=== PATIENT | female | born 1990 | race Caucasian/White ===

== ENCOUNTER 2017-06-17 07:20 | Emergency (ER) | payer OTHER ==
[~2017-06-17] VITALS: Ht 162.6 cm; Wt 70.5 kg
[2017-06-17] MEDS ORDERED: IOHEXOL 350 MG/ML 10 ML VIAL (for RAD DIAG) IVCONTRAST ONE (07:21)
[2017-06-17 07:25] VITALS: BP 119/67; PULSE 90; RESP 18; TEMP 98.6; O2SAT 99
--- NOTE | 2017-06-17 07:46 | PD ---
HPI Chief Complaint: URI Time Seen by Provider: 07:45 Travel History International Travel<30 days: No Contact w/Intl Traveler<30days: No Traveled to known affect area: No History of Present Illness HPI 27-year-old female came to the emergency room with history of fever, cough, vomiting, headache, neck pain and lower back pain on starting yesterday. The symptoms have been getting worse and hence today she decided to come to the emergency room. Patient says that she has slight chance of being . No history of diarrhea. She otherwise happens to be a normal person. Her daughter is here with her to be seen as well for 10 day period of fever and cough. Patient has had her flu shot. Vital signs are stable. She took fever medications last night but none this morning. She has had 3 strep throats this year already. She also had bilateral ear infection and finished a course of Augmentin last week ago. PFSH Past Medical History Narrative Medical List of her past medical, surgical, social and family history is reviewed from the nursing note. Social History Tobacco Use: Yes Allergies-Medications (Allergen,Severity, Reaction): Coded Allergies: No Known Allergies (Unverified , 06/17/17) Comments No known drug allergies. Reported Meds & Prescriptions Reported Meds & Active Scripts Active Phenergan Supp (Promethazine HCl) 12.5 Mg Supp 12.5 Mg RECTAL Q6H PRN Ibuprofen 600 Mg Tab 600 Mg PO Q6H PRN Zithromax Z-Mukesh (Azithromycin) 250 Mg Dspk 250 Mg PO DIRECTED 500 MG (2 tabs) day 1, then 1 tab days 2-5. Reported Xanax (Alprazolam) 1 Mg Tab 0.5 Mg PO BID PRN Rizatriptan (Rizatriptan Benzoate) 5 Mg Tab 5 Mg PO Q2HR PRN Singulair (Montelukast Sodium) 10 Mg Tab 10 Mg PO HS Narrative Medication Awaiting for the nurse to the med reconciliation. Review of Systems Except as stated in HPI: all other systems reviewed are Neg General / Constitutional: Positive: Fever HENT: Positive: Sore Throat, Congestion, Earache Respiratory: Positive: Cough Physical Exam Narrative GENERAL: Awake, alert, moderate distress SKIN: Focused skin assessment warm/dry. HEAD: Atraumatic. Normocephalic. EYES: Pupils equal and round. No scleral icterus. No injection or drainage. ENT: No nasal bleeding or discharge. Mucous membranes pink and moist. Erythema of the pharynx and tonsils, no exudates. Bilateral ear canal is red and the eardrum is dull with some fluid behind the eardrum. Right ear canal has significant amount of watery stuff coming out. NECK: Trachea midline. No JVD. CARDIOVASCULAR: Regular rate and rhythm. No murmur appreciated. RESPIRATORY: No accessory muscle use. Clear to auscultation. Breath sounds equal bilaterally. GASTROINTESTINAL: Abdomen soft, non-tender, nondistended. Hepatic and splenic margins not palpable. MUSCULOSKELETAL: No obvious deformities. No clubbing. No cyanosis. No edema. NEUROLOGICAL: Awake and alert. No obvious cranial nerve deficits. Motor grossly within normal limits. Normal speech. PSYCHIATRIC: Appropriate mood and affect; insight and judgment normal. Data Data Last Documented VS Orders Orders Complete Blood Count With Diff (06/17/17 07:53) Basic Metabolic Panel (Bmp) (06/17/17 07:53) Ed Urine Pregnancytest Poc (06/17/17 07:53) Urinalysis - C+S If Indicated (06/17/17 07:53) Influenzae A/B Antigen (06/17/17 07:53) Group A Rapid Strep Screen (06/17/17 07:53) Ondansetron Inj (Zofran Inj) (06/17/17 08:00) Strep Culture (Group A) (06/17/17 08:20) Ketorolac Inj (Toradol Inj) (06/17/17 09:30) Ct Brain W/O Iv Contrast(Rout) (06/17/17 ) Ct Soft Tiss Neck W Iv Cont (06/17/17 ) Blood Culture (06/17/17 09:48) Ceftriaxone Inj (Rocephin Inj) (06/17/17 10:00) Iohexol 350 Inj (Omnipaque 350 Inj) (06/17/17 07:21) Ed Discharge Order (06/17/17 11:03) Labs Laboratory Tests Test 06/17/17 08:29 06/17/17 08:40 Urine Color YELLOW Urine Turbidity HAZY Urine pH 7.0 Urine Specific [place] 1.020 Urine Protein TRACE mg/dL Urine Glucose (UA) NEG mg/dL Urine Ketones NEG mg/dL Urine Occult Blood MOD Urine Nitrite NEG Urine Bilirubin NEG Urine Urobilinogen LESS THAN 2.0 MG/DL Urine Leukocyte Esterase NEG Urine RBC 31 /hpf Urine WBC 1 /hpf Urine Squamous Epithelial Cells 6 /hpf Urine Amorphous Sediment MOD Urine Bacteria RARE /hpf Urine Mucus FEW /lpf Urine Yeast (Budding) OCC Microscopic Urinalysis Comment CULT NOT INDICATED White Blood Count 14.7 TH/MM3 Red Blood Count 3.95 MIL/MM3 Hemoglobin 12.0 GM/DL Hematocrit 35.3 % Mean Corpuscular Volume 89.4 FL Mean Corpuscular Hemoglobin 30.5 PG Mean Corpuscular Hemoglobin Concent 34.1 % Red Cell Distribution Width 12.8 % Platelet Count 223 TH/MM3 Mean Platelet Volume 8.8 FL Neutrophils (%) (Auto) 81.4 % Lymphocytes (%) (Auto) 10.2 % Monocytes (%) (Auto) 7.8 % Eosinophils (%) (Auto) 0.4 % Basophils (%) (Auto) 0.2 % Neutrophils # (Auto) 12.0 TH/MM3 Lymphocytes # (Auto) 1.5 TH/MM3 Monocytes # (Auto) 1.1 TH/MM3 Eosinophils # (Auto) 0.1 TH/MM3 Basophils # (Auto) 0.0 TH/MM3 CBC Comment DIFF FINAL Differential Comment Blood Urea Nitrogen 8 MG/DL Creatinine 0.47 MG/DL Random Glucose 100 MG/DL Calcium Level 8.3 MG/DL Sodium Level 138 MEQ/L Potassium Level 3.8 MEQ/L Chloride Level 107 MEQ/L Carbon Dioxide Level 24.9 MEQ/L Anion Gap 6 MEQ/L Estimat Glomerular Filtration Rate 158 ML/MIN [facility] Medical Decision Making Medical Screen Exam Complete: Yes Emergency Medical Condition: Yes Medical Record Reviewed: Yes Differential Diagnosis Viral illness, influenza, UTI, pneumonia,, strep throat Narrative Course 8:20 AM awaiting for the test results to come back. Meanwhile patient is receiving IV 1 L IV fluid bolus with Zofran. 11:[address] scan of her head and soft tissue of the neck is negative. Patient has a leukocytosis. Rest of the blood test results are within normal limit. I' ll discharge her home with antibiotic prescription. She was given 1 dose of Rocephin. Procedures EKG Prior to Arrival: No Diagnosis Primary Impression: Otitis media Qualified Codes: H66.90 - Otitis media, unspecified, unspecified ear Additional Impressions: Viral illness Pharyngitis Qualified Codes: J02.9 - Acute pharyngitis, unspecified Referrals: Primary Care Physician Additional Instructions: Take the medication as per the prescription direction. Return to the ER if the condition worsens or any other new concerns. Take Motrin/ibuprofen/Advil for pain or fever. Med/Other Pt SpecificInfo: Prescription(s) given Scripts Promethazine Supp (Phenergan Supp) 12.5 Mg Supp 12.5 MG RECTAL Q6H Y for NAUSEA OR VOMITING, #10 SUPP 0 Refills Prov: Nirmal Crane MD 06/17/17 Ibuprofen (Ibuprofen) 600 Mg Tab 600 MG PO Q6H Y for Pain/Inflammation, #40 TAB 0 Refills Prov: Nirmal Crane MD 06/17/17 Azithromycin (Zithromax Z-Mukesh) 250 Mg Dspk 250 MG PO DIRECTED for Infection, #1 DSPK 0 Refills 500 MG (2 tabs) day 1, then 1 tab days 2-5. Prov: Nirmal Crane MD 06/17/17 Disposition: 01 DISCHARGE HOME Condition: Stable Nirmal Crane MD Jun 17, 2017 07:46
[2017-06-17] MEDS ORDERED: ONDANSETRON HCL 4 MG/2 ML VIAL IV PUSH ONE (08:00)
[2017-06-17] MEDS ORDERED: XANA1TAB2 PO (08:27)
[2017-06-17] MEDS ORDERED: RIZA5TAB PO (08:27)
[2017-06-17] MEDS ORDERED: MONT10TA2 PO (08:27)
[2017-06-17 09:00] LABS: BASOPHIL % 0.2 % (0.0-2.0); EOSINOPHIL # 0.1 TH/MM3 (0-0.4); EOSINOPHIL % 0.4 % (0.0-4.0); HEMATOCRIT 35.3 % (35.0-46.0); HEMO FLAGS DIFF FINAL; LYMPH % 10.2 % (9.0-44.0); LYMPHOCYTE # 1.5 TH/MM3 (1.0-4.8); MEAN CELL VOLUME 89.4 FL (80.0-100.0); MEAN CORPUSCULAR HEMOGLOBIN 30.5 PG (27.0-34.0); MEAN CORPUSCULAR HGB CONC 34.1 % (32.0-36.0); MONO % 7.8 % (0.0-8.0); NEUT % 81.4 % (16.0-70.0); PLATELET COUNT 223 TH/MM3 (150-450); RED BLOOD COUNT 3.95 MIL/MM3 (4.00-5.30); RED CELL DISTRIBUTION WIDTH 12.8 % (11.6-17.2); WHITE BLOOD COUNT 14.7 TH/MM3 (4.0-11.0)
[2017-06-17 09:13] LABS: BACTERIA, URINE RARE /hpf; BLOOD, URINE MOD (NEG); COMMENT (UR) CULT NOT INDICATED; CULTURE IF INDICATED CULT NOT INDICATED; GLUCOSE,URINE NEG (NEG); KETONE, URINE NEG (NEG); MUCUS URINE FEW /lpf (OCC); NITRITE,URINE NEG (NEG); SQUAMOUS EPITHELIAL CELL URINE 6 /hpf (0-5); URINE COLOR YELLOW (YELLW/STRAW)
[2017-06-17 09:16] LABS: BICARBONATE 24.9 MEQ/L (21.0-32.0); POTASSIUM 3.8 MEQ/L (3.5-5.1)
[2017-06-17 09:30] VITALS: TEMP 98.4
[2017-06-17] MEDS ORDERED: KETOROLAC TROMETHAMINE 30 MG/ML (IVP) VIAL IV PUSH ONE (09:30)
[2017-06-17] MEDS ORDERED: cefTRIAXone INJ 1,000 MG in SODIUM CHLORIDE 0.9% INJ 100 ML IV ONE (10:00)
--- NOTE | 2017-06-17 10:33 | RADRPT ---
EXAM DATE/TIME: 06/17/2017 10:22 [facility] COMPARISON: No previous studies available for comparison. INDICATIONS : Fever, nausea, headache RADIATION DOSE: 41.65 CTDIvol (mGy) MEDICAL HISTORY : None SURGICAL HISTORY : None. ENCOUNTER: Initial ACUITY: 1 day PAIN SCALE: 4/10 LOCATION: cranial TECHNIQUE: Multiple contiguous axial images were obtained of the head. Using automated exposure control and adj ustment of the mA and/or kV according to patient size, radiation dose was kept as low as reasonably a chievable to obtain optimal diagnostic quality images. DICOM format image data is available electro nically for review and comparison. FINDINGS: CEREBRUM: The ventricles are normal for age. No evidence of midline shift, mass lesion, hemorrhage or acute in farction. No extra-axial fluid collections are seen. POSTERIOR FOSSA: The cerebellum and brainstem are intact. The 4th ventricle is midline. The cerebellopontine angle i s unremarkable. EXTRACRANIAL: The visualized portion of the orbits is intact. SKULL: The calvaria is intact. No evidence of skull fracture. CONCLUSION: Normal examination. Gio Weiss Jr., MD on June 17, 2017 at 10:30 Board Certified Radiologist. This report was verified electronically.
--- NOTE | 2017-06-17 10:39 | RADRPT ---
EXAM DATE/TIME: 06/17/2017 10:22 [facility] COMPARISON: No previous studies available for comparison. INDICATIONS : Fever, neck and back pain IV CONTRAST: 75 cc Omnipaque 350 (iohexol) IV RADIATION DOSE: 19.51 CTDIvol (mGy) MEDICAL HISTORY : None SURGICAL HISTORY : None. ENCOUNTER: Initial ACUITY: 1 day PAIN SCALE: 5/10 LOCATION: neck TECHNIQUE: Volumetric scanning of the neck was performed. Using automated exposure control and adjustment of th e mA and/or kV according to patient size, radiation dose was kept as low as reasonably achievable to obtain optimal diagnostic quality images. DICOM format image data is available electronically for r eview and comparison. FINDINGS: NASOPHARYNX: The nasopharyngeal airway has a normal configuration. No mucosal thickening or mass is seen. OROPHARYNX: The intrinsic muscles of the tongue are symmetric. Mild prominence of the LARYNX: The supraglottic, glottic, and infraglottic structures are intact. PARAPHARYNGEAL: The parapharyngeal space is intact. SALIVARY GLANDS: The parotid and submandibular glands are intact. LYMPH NODES: No enlarged or necrotic-appearing nodes. THYROID: Homogeneous enhancement without evidence of nodule. BONES: Unremarkable. CONCLUSION: Mild prominence of the tonsils and adenoids. Gerry Wolf MD FACR on June 17, 2017 at 10:36 Board Certified Radiologist. This report was verified electronically.
[2017-06-17] MEDS ORDERED: IBUP-232 PO (11:14)
[2017-06-17] MEDS ORDERED: ZITHTAB PO (11:14)
[2017-06-17] MEDS ORDERED: PROM2SUP RECTAL (12:28)
== END 2017-06-17 12:39 | disposition home or self-care (01) ==
LOC: NEPE 07:20
DX: H66.90 Otitis media, unspecified, unspecified ear (principal); B34.9 Viral infection, unspecified; D72.829 Elevated white blood cell count, unspecified; Z72.0 Tobacco use; Z79.899 Other long term (current) drug therapy
CPT/HCPCS: 70450; 70491; 80048; 81001; 84703; 85025; 86403; 87040; 87081; 87804; 87880; 96365; 96375; 99285; J0696; J1885; J2405; Q9967